=== PATIENT | female | born 1960 | race Caucasian/White ===

== ENCOUNTER 2023-02-17 11:20 | Emergency (ER) | payer MEDICARE ==
[~2023-02-17] VITALS: Ht 160 cm; Wt 55.8 kg
[2023-02-17 11:25] VITALS: BP_SYST 112
--- NOTE | 2023-02-17 11:30 | NUR ---
Pt ARCHANA from home for allergic rxn. Pt states she was bite by a bug. Generalized rash and angioedema noted. Pt took 100mg Benadryl PO. 50mg benadryl IV also given by paramedics. Placed in room 2. Placed on groundwater monitoring technician, blood pressure machine and pulse oximeter. To gown for exam. Side rails up. Report given to Molly GARCIA.
[2023-02-17] MEDS ORDERED: EPINEPHRINE HCL/PF 1 MG/ML AMP IM ONE (12:00)
--- NOTE | 2023-02-17 12:00 | NUR ---
ER at bedside examining patient.
[2023-02-17] MEDS ORDERED: EPIN0.3P3 IM (13:04)
[2023-02-17 13:19] VITALS: BP_SYST 115
--- NOTE | 2023-02-17 13:20 | NUR ---
PT BIB BLS FROM HOME C/O SWOLLEN TOUNGE AND RED RASHES OVER ENTIRE BODY. PT STATES BIT BY A BUG. PT STATES TOUNGE SWELLING HAS IMPROVED. PT IN NO DISTRESS AT THIS TIME. PT RESTING COMFORTABLY IN BED WITH RAILS UP VSS.
--- NOTE | 2023-02-17 13:22 | NUR ---
Patient given written and verbal discharge instructions and verbalizes understanding. ER MD discussed with patient the results and treatment provided. Patient in stable condition. ID arm band removed. IV catheter removed intact and dressing applied, no active bleeding. Rx of EPIPEN 2 PACK given. Patient educated on HIVES and to follow up with PMD. Pain Scale . Opportunity for questions provided and answered. Medication side effect fact sheet provided.
== END 2023-02-17 13:22 | disposition home or self-care (01) ==
LOC: SED 11:20
DX: S50.361A Insect bite (nonvenomous) of right elbow, initial encounter (principal); L50.9 Urticaria, unspecified; Z79.899 Other long term (current) drug therapy; W57.XXXA Bitten or stung by nonvenomous insect and other nonvenomous arthropods, initial encounter; Y93.89 Activity, other specified; Y92.89 Other specified places as the place of occurrence of the external cause; Y99.8 Other external cause status
CPT/HCPCS: 99283; 96372; J0171